=== PATIENT | female | born 2000 | race Caucasian/White ===

== ENCOUNTER 2020-11-27 14:33 | Emergency (ER) | payer OTHER, SELFPAY ==
--- NOTE | ~2020-11-27 | US_ITS ---
EXAMINATION: US OBSTETRICAL ULTRASOUND CLINICAL INFORMATION: Abdominal pain with question of ectopic COMPARISON: None. TECHNIQUE: Both transabdominal and endovaginal scanning was performed. FINDINGS: An anteverted uterus is present which appeared normal. Uterine size was not measured by the technologist. The endometrium appears normal at 1.2 cm. No endometrial fluid collection or gestational sac is seen. The right ovary measures 4.2 x 3.1 x 2.5 cm and includes a probable corpus luteum cyst measuring 2.4 x 1.4 x 2.1 cm. Left ovary measures 2.1 x 2.1 x 2.0 cm. Some free fluid is present in the cul-de-sac. US/US OB transvaginal IMPRESSION: An intrauterine gestation is not seen. Small amount of free intrapelvic fluid is noted. An ectopic is not visualized. Please correlate with HSG and follow-up ultrasounds as needed.
--- NOTE | ~2020-11-27 | US_ITS ---
EXAMINATION: US OBSTETRICAL ULTRASOUND CLINICAL INFORMATION: Abdominal pain with question of ectopic COMPARISON: None. TECHNIQUE: Both transabdominal and endovaginal scanning was performed. FINDINGS: An anteverted uterus is present which appeared normal. Uterine size was not measured by the technologist. The endometrium appears normal at 1.2 cm. No endometrial fluid collection or gestational sac is seen. The right ovary measures 4.2 x 3.1 x 2.5 cm and includes a probable corpus luteum cyst measuring 2.4 x 1.4 x 2.1 cm. Left ovary measures 2.1 x 2.1 x 2.0 cm. Some free fluid is present in the cul-de-sac. US/US OB <= 14 weeks fetus IMPRESSION: An intrauterine gestation is not seen. Small amount of free intrapelvic fluid is noted. An ectopic is not visualized. Please correlate with HSG and follow-up ultrasounds as needed.
--- NOTE | ~2020-11-27 | US_ITS ---
EXAMINATION: RIGHT LOWER QUADRANT ULTRASOUND CLINICAL INFORMATION: Right lower quadrant pain with question of appendicitis COMPARISON: None TECHNIQUE: A linear transducer was utilized to examine the right lower quadrant in area of the patient's pain. FINDINGS: A normal appendix was not visualized. No inflammatory changes or adenopathy or free fluid is seen in the right lower quadrant. US/US appendix IMPRESSION: The exam is indeterminate for appendicitis as a normal appendix was not visualized.
[2020-11-27 14:58] VITALS: BP 123/57; PULSE 93; RESP 16; TEMP 36.6; O2SAT 99; BMI 23.9
[2020-11-27 17:59] VITALS: BP 120/70; PULSE 83; RESP 12; O2SAT 100
[2020-11-27 17:59] LABS: UPreg QC Valid YES; Urine Pregnancy POSITIVE (NEGATIVE)
[2020-11-27 18:00] LABS: Glucose Urine UA NEG (NEG); Leukocyte Esterase Urine NEG (NEG); Nitrite Urine NEG (NEG); PH 7.5 (5.0-8.0); Specific Gravity - Urine 1.015 (1.005-1.025); Urine Blood NEG (NEG); Urine Ketones NEG (NEG); Urine Protein NEG (NEG-TRACE)
[2020-11-27 18:08] LABS: Appearance Urine CLEAR; Color Urine YELLOW
--- NOTE | 2020-11-27 18:10 | ED_ITS ---
HPI - General Adult General Chief complaint: OB Stated complaint: abd pain Time Seen by Provider: 11/27/20 19:54 Source: patient Mode of arrival: ambulatory Limitations: no limitations History of Present Illness HPI narrative: Patient brought to the ED for bilateral lower abdominal pain/cramping. Patient states she found out she was yesterday after taking 6 test at home. Patient brought to the ED to be evaluated. Patient denies any vaginal bleeding or vaginal discharge. Patient denies any flank pain, fever, or chills. Related Data Allergies Allergy/AdvReac Type Severity Reaction Status Date / Time No Known Allergies Allergy Verified 11/27/20 14:57 Review of Systems Review of Systems: Yes all other systems are reviewed and are negative Constitutional: Constitutional: Reports as per HPI and Reports no additional constitutional complaints Eyes: Eyes: Reports as per HPI and Reports no additional eye complaints ENT: Reports system reviewed and no additional complaints, except as documented and Reports as per HPI Cardiovascular: Cardiovascular: Reports as per HPI and Reports no additional cardiovascular complaints Respiratory: Respiratory: Reports as per HPI and Reports no additional respiratory complaints Gastrointestinal: Gastrointestinal: Reports as per HPI, Reports no additional gastrointestinal complaints and Reports abdominal pain (Bilateral suprapubic pain) Genitourinary: Genitourinary: Reports no additional female genitourinary complaints and Reports as per HPI Musculoskeletal: Musculoskeletal: Reports no additional musculoskeletal complaints and Reports as per HPI Neurologic: Reports system reviewed and no additional complaints, except as documented and Reports as per HPI Psychiatric: Psychiatric: Reports no additional psychiatric complaints and Reports as per HPI [facility] Social History Social History Alcohol intake: current Alcohol intake frequency: does not drink Smoking Status: Never smoker Use of substances other than those prescribed or required for medical reasons: No Advance Directives: No Advance Directives Information Provided: Yes Physical Exam Vital Signs: Vital Signs: Last Vital Signs Temp 97.9 F 11/27/20 14:58 Pulse 83 11/27/20 17:59 Resp 12 11/27/20 17:59 BP 120/70 11/27/20 17:59 Pulse Ox 100 11/27/20 17:59 Body Mass Index 23.9 Const: General: cooperative, healthy appearing, comfortable, no acute distress, well developed, alert, awake and Physically active Orientation/consciousness: patient oriented x3 HENMT: Head: Yes normal to inspection, Yes No palpable skull fracture present, Yes normocephalic, Yes atraumatic and No abrasion Eyes: General: appearance normal, both eyes and all related structures Neck: Neck: Yes normal visual inspection, Yes full ROM, Yes no lymphadenopathy, Yes no meningeal signs, Yes trachea midline, Yes supple and No tender Chest: Chest palpation & inspection: normal inspection of the chest and normal palpation of entire chest wall Resp: Effort & Inspection: normal respiratory effort and able to speak in com plete sentences Auscultation: clear to auscultation bilaterally Cardio: Jugular venous distension: no JVD and no JVD Heart sounds: S1 normal heart sound present and S2 normal heart sound present GI: Inspection: Yes normal to inspection Palpation (GI): Soft to palpation, not firm, Tenderness to palpation present (GI) suprapubicly (Bilateral suprapubic pain); not periumbilically, Cannon's sign negative, obturator sign negative, psoas sign negative, with no rebound tenderness, Rovsing's sign negative and no other, no guarding and not rigid : General: Yes Bimanual renal exam normal bilaterally, No CVA tenderness and Yes no CVA tenderness Speculum Exam - Vagina: normal appearance of the vagina and No vaginal bleeding Speculum Exam - Cervix: normal appearance of the cervix and Cervical os closed Bimanual Exam- Adnexa, other: normal adnexae OB/external & speculum: No vaginal bleeding Back/Spine/Pelvis: Back: no CVA tenderness, No CVA tenderness and No back tenderness Skin: General skin exam: no rashes or lesions noted and elasticity normal Neuro: General: patient oriented x3, no meningeal signs and CN's II-XI intact bilaterally Cranial nerves: Yes CN's II-XII intact bilaterally Extrem: General: Yes normal to inspection and Yes full ROM Psych: Appearance: grossly normal, well kempt and not disheveled Course Course Course Narrative: Will send urine. If patient's urine is positive and negative for UTI. Patient will have labs and be sent for ultrasound to rule out ectopic . Reevaluation(s) Reevaluation #1: Patient's urine positive. Will do blood work and sent her for imaging to rule out topic . Reevaluation #2: Unlikely patient having appendicitis. Patient does not have elevated white blood cell count. Negative McBurney. And ultrasound negative for any signs fluid or lymphadenopathy although appendix not visualized. Patient states she feels better. HCG Asmita at 667 ultrasound negative for IUP with small free fluid. Spoke with Dr. Rodriguez of [facility] who states patient could be discharged and follow-up in the clinic within 48 hours for repeat hCG and ultrasound. Patient no longer having any abdominal pain after receiving Tyleno l. Medical Decision Making MDM Narrative Medical decision making narrative: . Threatened . Lab Data Result diagrams: 11/27/20 18:35 11/27/20 18:35 Labs: Lab Results 11/27/20 11/27/20 11/27/20 Range/Units 17:31 17:31 18:35 WBC 8.0 (4.8-10.8) X10*3/uL RBC 4.29 (4.20-5.50) X10*6/uL Hgb 12.4 (12.0-16.0) g/dl Hct 38.1 (37-47) % MCV 88.8 (80-98) fL MCH 28.9 (27.0-33.0) pg MCHC 32.5 (31.0-35.0) g/dl RDW 11.8 (11.0-16.0) % Plt Count 258 (160-400) X10*3/uL MPV 9.3 L (9.4-12.3) fL Immature Gran % (Auto) 0.5 H (0.0-0.4) % Neut % (Auto) 61.0 (45-73) % Lymph % (Auto) 27.2 (20-40) % [place] % (Auto) 6.6 (2-11) % Eos % (Auto) 4.2 H (0-4) % Baso % (Auto) 0.5 (0-2) % Lymph # (Auto) 2.2 (1.2-4.9) X10*3/uL [place] # (Auto) 0.5 (0.1-1.2) X10*3/uL Eos # (Auto) 0.3 (0.0-0.4) X10*3/uL Baso # (Auto) 0.0 (0.0-0.2) X10*3/uL Abs Immat Gran (auto) 0.04 H (0.00-0.03) X10*3/uL Absolute Neuts (auto) 4.9 (2.0-8.3) X10*3/uL Absolute Nucleated RBC 0.000 (0.0-0.012) X10*3/uL Nucleated RBC % (auto) 0.0 (0.0-0.2) /100WBC PT (10.8-13.0) SEC INR (0.9-1.1) APTT (24.1-38.0) SEC Sodium (135-145) mmol/L Potassium (3.3-5.1) mmol/L Chloride (96-108) mmol/L Carbon Dioxide (22-29) mmol/L Anion Gap (12-20) BUN (9-16) mg/dL Creatinine (0.5-1.4) mg/dL Estim Creat Clear Calc Estimated GFR Random Glucose (60-115) mg/dL Calcium (8.4-10.2) mg/dL Total Bilirubin (0.0-1.0) mg/dL Direct Bilirubin (0.0-0.5) mg/dL AST (5-31) U/L ALT (0-31) U/L Alkaline Phosphatase (39-117) U/L Total Protein (6.5-8.0) g/dL Albumin (3.5-5.0) g/dL Beta HCG, Quant mIU/mL Urine Color YELLOW Urine Appearance CLEAR Urine pH 7.5 (5.0-8.0) Ur Specific [place] 1.015 (1.005-1.025) Urine Protein NEG (NEG-TRACE) MG/DL Urine Glucose (UA) NEG (NEG) MG/DL Urine Ketones NEG (NEG) MG/DL Urine Blood NEG (NEG) Urine Nitrite NEG (NEG) Ur Leukocyte Esterase NEG (NEG) Urine RBC 0 (0) /HPF Urine WBC 0 (0-4) /HPF Ur Squamous Epith Cells TRACE /LPF Urine Bacteria NONE /LPF Urine Test POSITIVE H (NEGATIVE) Blood Type 11/27/20 11/27/20 11/27/20 Range/Units 18:35 18:35 18:35 WBC (4.8-10.8) X10*3/uL RBC (4.20-5.50) X10*6/uL Hgb (12.0-16.0) g/dl Hct (37-47) % MCV (80-98) fL MCH (27.0-33.0) pg MCHC (31.0-35.0) g/dl RDW (11.0-16.0) % Plt Count (160-400) X10*3/uL MPV (9.4-12.3) fL Immature Gran % (Auto) (0.0-0.4) % Neut % (Auto) (45-73) % Lymph % (Auto) (20-40) % [place] % (Auto) (2-11) % Eos % (Auto) (0-4) % Baso % (Auto) (0-2) % Lymph # (Auto) (1.2-4.9) X10*3/uL [place] # (Auto) (0.1-1.2) X10*3/uL Eos # (Auto) (0.0-0.4) X10*3/uL Baso # (Auto) (0.0-0.2) X10*3/uL Abs Immat Gran (auto) (0.00-0.03) X10*3/uL Absolute Neuts (auto) (2.0-8.3) X10*3/uL Absolute Nucleated RBC (0.0-0.012) X10*3/uL Nucleated RBC % (auto) (0.0-0.2) /100WBC PT 13.3 H (10.8-13.0) SEC INR 1.1 (0.9-1.1) APTT 31.4 (24.1-38.0) SEC Sodium 137 (135-145) mmol/L Potassium 3.9 (3.3-5.1) mmol/L Chloride 105 (96-108) mmol/L Carbon Dioxide 25 (22-29) mmol/L Anion Gap 11 L (12-20) BUN 10 (9-16) mg/dL Creatinine 0.67 (0.5-1.4) mg/dL Estim Creat Clear Calc 111.7 Estimated GFR > 60 Random Glucose 93 (60-115) mg/dL Calcium 8.9 (8.4-10.2) mg/dL Total Bilirubin 0.4 (0.0-1.0) mg/dL Direct Bilirubin 0.2 (0.0-0.5) mg/dL AST 18 (5-31) U/L ALT 11 (0-31) U/L Alkaline Phosphatase 45 (39-117) U/L Total Protein 7.1 (6.5-8.0) g/dL Albumin 4.4 (3.5-5.0) g/dL Beta HCG, Quant 669 mIU/mL Urine Color Urine Appearance Urine pH (5.0-8.0) Ur Specific [place] (1.005-1.025) Urine Protein (NEG-TRACE) MG/DL Urine Glucose (UA) (NEG) MG/DL Urine Ketones (NEG) MG/DL Urine Blood (NEG) Urine Nitrite (NEG) Ur Leukocyte Esterase (NEG) Urine RBC (0) /HPF Urine WBC (0-4) /HPF Ur Squamous Epith Cells /LPF Urine Bacteria /LPF Urine Test (NEGATIVE) Blood Type A Positive Discharge Plan Discharge Clinical Impression: , spontaneous threatened Patient Disposition: Home, Self-Care Instructions: Threatened Miscarriage (ED), (ED), Abdominal Pain in (ED) Additional Instructions: Return to the ED immediately for worsening abdominal pain, vaginal bleeding, dizziness, nausea, vomitting, weakness, fever, chills, chest pain, shortness of breath, dysuria, hematuria, flank pain, or any other concerning symptoms. Recommend repeat hCG and ultrasound in 48 hours. Referrals: Isidoro Rodriguez MD [Physician] - 2 days (Lower abdominal cramping and . Possible threatened . Recommend repeat ultrasound and beta-hCG in 48 hours.) Interventions: ED Discharge Assessment Last Done: 11/27/20 21:22 Discharge Date/Time: 11/27/20 21:23 Print Language: [place]
[2020-11-27 18:37] LABS: RBC Urine 0 /HPF (0); Squamous Epithelial Cell Urine TRACE /LPF; WBC Urine 0 /HPF (0-4)
[2020-11-27 18:43] LABS: MANUAL DIFF FLAG NO
[2020-11-27 18:48] LABS: Basophils Percent Auto 0.5 % (0-2); Eosinophils Absolute Auto 0.3 X10*3/uL (0.0-0.4); Eosinophils Percent Auto 4.2 % (0-4); Hematocrit 38.1 % (37-47); Hemoglobin 12.4 g/dl (12.0-16.0); INTERNATIONAL NORM RATIO 1.1 (0.9-1.1); Imm Gran Abs Auto 0.04 X10*3/uL (0.00-0.03); Imm Gran Pct Auto 0.5 % (0.0-0.4); Lymphocytes Absolute Auto 2.2 X10*3/uL (1.2-4.9); Lymphocytes Percent Auto 27.2 % (20-40); Mean Corpuscular HGB Conc 32.5 g/dl (31.0-35.0); Mean Corpuscular Hemoglobin 28.9 pg (27.0-33.0); Mean Corpuscular Volume 88.8 fL (80-98); Mean Platelet Volume 9.3 fL (9.4-12.3); Monocytes Absolute Auto 0.5 X10*3/uL (0.1-1.2); Monocytes Percent Auto 6.6 % (2-11); Neutrophils Absolute Auto 4.9 X10*3/uL (2.0-8.3); Platelet Count 258 X10*3/uL (160-400); Prothrombin Time 13.3 SEC (10.8-13.0); Red Blood Count 4.29 X10*6/uL (4.20-5.50); Red Cell Distribution Width 11.8 % (11.0-16.0)
[2020-11-27 18:51] LABS: Partial Thromboplastin Time 31.4 SEC (24.1-38.0)
[2020-11-27] MEDS: Acetaminophen 325 MG TABLET 650 MG PO (18:51)
[2020-11-27 19:05] LABS: Alanine Aminotransferase 11 U/L (0-31); Albumin Level 4.4 g/dL (3.5-5.0); Alkaline Phosphatase 45 U/L (39-117); Anion Gap 11 (12-20); Aspartate Amino Transferase 18 U/L (5-31); Bilirubin Direct 0.2 mg/dL (0.0-0.5); Bilirubin Total 0.4 mg/dL (0.0-1.0); Blood Urea Nitrogen 10 mg/dL (9-16); Calcium 8.9 mg/dL (8.4-10.2); Carbon Dioxide 25 mmol/L (22-29); Chloride 105 mmol/L (96-108); Creatinine Clr Calc Pharmacy 111.7; Estimated Glomerular Filt Rate > 60; Glucose Random 93 mg/dL (60-115); Potassium 3.9 mmol/L (3.3-5.1); Sodium 137 mmol/L (135-145); Total Protein 7.1 g/dL (6.5-8.0)
[2020-11-27 19:10] LABS: HCG Quantitative 669 mIU/mL
--- NOTE | 2020-11-27 22:50 | PM.GYNCN ---
ENERGY EFFICIENCY SPECIALIST - CN: HPI Data of Consult Consult date: 11/27/20 Primary Care Provider: None Physician Consult Narrative Narrative: I was consulted regarding Gonzalez Busch who is is a 19 year old female who presented emergency room with lower abdominal cramping after positive urine test yesterday no vaginal bleeding. Workup included CBC chemistry which were normal hCG 669, pelvic ultrasound and appendix ultrasound was negative no IUP and no adnexal masses. Rh positive cc:: CC: EXHIBITS COORDINATOR - Review of Systems Review of Systems ROS Unobtainable: All systems reviewed & are unremarkable except as noted in HPI and below Cardiovascular: Denies Palpatations, Loss of consciousness and Chest pain Respiratory: Denies Cough, Wheezing and Shortness of breath Musculoskeletal: Denies Low back pain Gastrointestinal: Denies Heartburn, Constipation, Diarrhea, Nausea and Vomiting Genitourinary: Denies Pain with urination, Burning with urination and Urinary frequency Neurological: Denies Migranes Psychological: Denies Depression OB [facility] Social History Social History Alcohol intake: current Alcohol intake frequency: does not drink Smoking Status: Never smoker Use of substances other than those prescribed or required for medical reasons: No Advance Directives: No Advance Directives Information Provided: Yes Meds Allergies Allergy/AdvReac Type Severity Reaction Status Date / Time No Known Allergies Allergy Verified 11/27/20 14:57 ENERGY EFFICIENCY SPECIALIST Physical Exam Vitals Vital signs: Temp Pulse Resp BP Pulse Ox 97.9 F 83 12 120/70 100 11/27/20 14:58 11/27/20 17:59 11/27/20 17:59 11/27/20 17:59 11/27/20 17:59 Body Mass Index 23.9 Abdomen Auscultation/Inspection/Palpation: Normal bowel sounds, Soft, Non-distended and No tenderness Additional Comments: Per [place] abdominal and pelvic exam within normal no cervical motion tenderness adnexal tenderness or adnexal tenderness ENERGY EFFICIENCY SPECIALIST - Results Labs CBC & Chem 7: 11/27/20 18:35 11/27/20 18:35 Labs: Short CBC 11/27/20 Range/Units 18:35 WBC 8.0 (4.8-10.8) X10*3/uL Hgb 12.4 (12.0-16.0) g/dl Hct 38.1 (37-47) % Plt Count 258 (160-400) X10*3/uL BMP 11/27/20 18:35 Sodium 137 Potassium 3.9 Chloride 105 Carbon Dioxide 25 BUN 10 Creatinine 0.67 Calcium 8.9 Liver Function 11/27/20 Range/Units 18:35 Total Bilirubin 0.4 (0.0-1.0) mg/dL Direct Bilirubin 0.2 (0.0-0.5) mg/dL AST 18 (5-31) U/L ALT 11 (0-31) U/L Alkaline Phosphatase 45 (39-117) U/L Albumin 4.4 (3.5-5.0) g/dL Urine 11/27/20 11/27/20 Range/Units 17:31 17:31 Urine Color YELLOW Urine Appearance CLEAR Urine pH 7.5 (5.0-8.0) Ur Specific [place] 1.015 (1.005-1.025) Urine Protein NEG (NEG-TRACE) MG/DL Urine Glucose (UA) NEG (NEG) MG/DL Urine Test POSITIVE H (NEGATIVE) Assessment and Plan (1) Early stage of : Status: Acute Recommended repeat hCG in 48 hours and re-evaluation in the office. Instructions to be given to patient to call if abdominal pain gets worse vaginal bleeding nausea or vomiting, fever above 1004
== END 2020-11-27 21:23 | disposition home or self-care (01) ==
PROVIDERS: Physician Assistant; Emergency Provider Internal Medicine
DX: O20.0 Threatened abortion (principal); R10.30 Lower abdominal pain, unspecified; Z3A.01 Less than 8 weeks gestation of pregnancy
CPT/HCPCS: 36415; 76705; 76801; 76817; 80053; 80076; 81001; 81025; 82248; 84702; 85025; 85610; 85730; 86900; 86901; 99283; 99284

== ENCOUNTER 2020-12-17 23:37 | Emergency (ER) | payer MEDICAID, SELFPAY ==
[2020-12-18 00:04] LABS: COVID-19 Test Positive (Negative)
[2020-12-18 00:16] VITALS: BMI 23.0
--- NOTE | 2020-12-18 00:31 | ED_ITS ---
HPI - Nausea/Vomiting/Diarrhea General Chief complaint: Nausea/Vomiting/Diarrhea Stated complaint: Covid symtoms Time Seen by Provider: 12/18/20 00:30 Source: patient Mode of arrival: ambulatory Limitations: no limitations History of Present Illness HPI Narrative: Patient is a 20-year-old female with a past medical history of asthma who is , unsure of how far along or due date but did say she has had tested positive for on November 24, she presents to the ED because her mother tested positive for COVID and she like to be tested because she has nausea vomiting x2 days. She denies fevers or diarrhea. She states she has had to use her inhaler today but it worked well when she did use it. She denies chest pain, shortness of breath. She states she did get some antinausea medication from her OBGYN and she took it today, it did not work. She said she is eating normal foods and did vomit a little bit of her breakfast, most of her lunch and a little bit of her dinner. She states she drinks water with lemon only. Related Data Allergies Allergy/AdvReac Type Severity Reaction Status Date / Time No Known Allergies Allergy Verified 11/27/20 14:57 Review of Systems Review of Systems: Yes all other systems are reviewed and are negative [facility] Social History Social History Alcohol intake: current Alcohol intake frequency: does not drink Smoking Status: Never smoker Advance Directives: No Physical Exam Vital Signs: Vital Signs: Last Vital Signs Pulse 81 12/18/20 01:05 Resp 16 12/18/20 01:05 BP 100/57 L 12/18/20 01:05 Pulse Ox 98 12/18/20 01:05 Body Mass Index 23.0 Const: General: cooperative, healthy appearing, comfortable and no acute distress Nutritional Appearance: average body habitus Orientation/consciousness: patient oriented x3 Limitations: no limitations HENMT: Head: Yes normal to inspection, Yes No palpable skull fracture present and Yes atraumatic Ears: hearing grossly normal bilaterally Face and sinus: Yes normal facial exam Mouth: Normal oral and palatal mucosa present and moist mucous membranes Eyes: General: appearance normal, both eyes and all related structures Neck: Neck: Yes normal visual inspection, Yes full ROM and Yes supple Resp: Effort & Inspection: normal respiratory effort and able to speak in complete sentences Auscultation: clear to auscultation bilaterally Cardio: Rate: regular rate Rhythm: regular rhythm Heart sounds: normal S1 and S2 GI: Inspection: Yes normal to inspection Palpation (GI): Soft to palpation and nontender Neuro: General: patient oriented x3 Course Course Course Narrative: Patient is a 20-year-old female with a past medical history of asthma who is also , unsure of how far, due date, she has a 1st appointment tomorrow with her OBGYN. She has had nausea and vomiting x2 days and her mother tested positive for COVID so she wanted to be tested today. Upon exam, patient was very well-appearing, well-hydrated, lungs are CTA. Patient did test positive for COVID. Reviewed making sure she stays hydrated with not only water but Pedialyte or similar electrolyte drink. Advised patient to use speak with her OBGYN to let them know she did test positive but she should quarantine and stay out of work for at least 10 days. Patient understands and answered all of patient's questions at this time. VSS MDM - Nausea/Vomiting/Diarrhea Lab Data Attestation: I reviewed the patient's lab results. Labs: Lab Results 12/17/20 Range/Units 23:43 COVID-19 ([facility]) Positive A (Negative) COVID-19 Clin Com See Note Discharge Plan Discharge Clinical Impression: COVID-19, Early stage of Patient Disposition: Home, Self-Care Instructions: COVID-19 (Coronavirus Disease 2019) (ED) Additional Instructions: As discussed, please be sure to let your OBGYN know you have tested positive for COVID today. I will provide you with a work note to stay out of work for 10 days. Please be sure to stay well hydrated with electrolyte drink similar to Pedialyte. If you are unable to tolerate food, having a difficult time managing your nausea, please call your OBGYN or seek emergent medical care. Stand Alone Forms: Work/School Release Interventions: ED Discharge Assessment Last Done: 12/18/20 01:06 Discharge Date/Time: 12/18/20 01:07
[2020-12-18 01:05] VITALS: BP 100/57; PULSE 81; RESP 16; O2SAT 98
== END 2020-12-18 01:07 | disposition home or self-care (01) ==
PROVIDERS: Emergency Provider Emergency Medicine Emergency Medical Services
DX: O98.511 Other viral diseases complicating pregnancy, first trimester (principal); U07.1 COVID-19; Z3A.00 Weeks of gestation of pregnancy not specified
CPT/HCPCS: 36415; 87635; 99283; 99284

== ENCOUNTER 2021-03-29 20:05 | Emergency (ER) | payer MEDICAID, SELFPAY ==
[2021-03-29 20:41] VITALS: BP 121/67; PULSE 92; RESP 18; TEMP 36.8; O2SAT 98; BMI 24.9
[2021-03-29 21:05] LABS: IDNOW Serial# 9DD0AD1C; Strep A Nucleic Acid Negative (Negative)
--- NOTE | 2021-03-29 21:24 | ED_ITS ---
HPI - URI/Sore Throat General Chief Complaint: Upper Respiratory Symptoms Stated Complaint: strept? 22 weeks Time Seen by Provider: 03/29/21 21:24 Source: patient Mode of arrival: ambulatory Limitations: no limitations History of Present Illness HPI Narrative: sore throat stted boy friend has strep throat and she has throat pain MD elicited complaint: sore throat Onset (ago): hour(s) (1) Consistency: constant Severity: moderate Able to tolerate fluids by mouth: Yes Exacerbating factors: swallowing Context: sick contacts Related Data Allergies Allergy/AdvReac Type Severity Reaction Status Date / Time No Known Allergies Allergy Verified 03/29/21 20:40 Review of Systems Review of Systems: Yes all other systems are reviewed and are negative ENT: Reports as per HPI and Reports sore throat Cardiovascular: Cardiovascular: Reports no additional cardiovascular complaints Respiratory: Respiratory: Reports no additional respiratory complaints [facility] Past Medical History Attestation statement: The following information was validated with the patient. Medical History Asthma Social History Social History Alcohol intake: current Alcohol intake frequency: does not drink Advance Directives: No Advance Directives Information Provided: Yes Patient : Yes Physical Exam Vital Signs: Vital Signs: Last Vital Signs Temp 98.2 F 03/29/21 20:41 Pulse 92 03/29/21 20:41 Resp 18 03/29/21 20:41 BP 121/67 03/29/21 20:41 Pulse Ox 98 03/29/21 20:41 Body Mass Index 24.9 Const: General: healthy appearing Orientation/consciousness: oriented to person, oriented to place, oriented to time and patient oriented x3 HENMT: Head: Yes normal to inspection and Yes No palpable skull fracture present Ears: hearing grossly normal bilaterally General nose exam: Normal external nose present and Normal nares present Throat: Yes other (Redness of the pharynx was noted) Neck: Neck: Yes normal visual inspection, Yes full ROM and Yes no lymphadenopathy Thyroid: Thyroid normal Chest: Chest palpation & inspection: normal inspection of the chest Resp: Effort & Inspection: normal respiratory effort Cardio: Jugular venous distension: no JVD Rate: regular rate GI: Inspection: Yes normal to inspection : General: Yes no CVA tenderness Back/Spine/Pelvis: Back: no CVA tenderness Skin: General skin exam: no rashes or lesions noted Neuro: General: oriented to person, oriented to place, oriented to time, patient oriented x3 and gait normal MDM - URI/Sore Throat MDM Narrative Medical decision making narrative: Strep is negative ; coronavirus test is negative ;she is not toxic she looks well she can be discharged home a Lab Data Labs: Lab Results 03/29/21 03/29/21 Range/Units 20:48 20:50 Coronavirus (PCR) NEGATIVE (Negative) Influenza Type A (PCR) NEGATIVE (Negative) Influenza Type B (PCR) NEGATIVE (Negative) RSV RNA Qual (PCR) NEGATIVE (Negative) S. pyogenes GrpA MARY Negative (Negative) Discharge Plan Discharge Clinical Impression: Pharyngitis Patient Disposition: Home, Self-Care Instructions: Pharyngitis (ED) Discharge Date/Time: 03/29/21 21:45
[2021-03-29 21:34] LABS: Influenza A PCR NEGATIVE (Negative); Influenza B PCR NEGATIVE (Negative); Resp Syncy Virus RNA Qual PCR NEGATIVE (Negative); SARS COV2 PCR INHOUSE NEGATIVE (Negative)
== END 2021-03-29 21:45 | disposition home or self-care (01) ==
PROVIDERS: Emergency Provider Emergency Medicine
DX: O26.92 Pregnancy related conditions, unspecified, second trimester (principal); Z3A.22 22 weeks gestation of pregnancy; Z20.822 Contact with and (suspected) exposure to COVID-19
CPT/HCPCS: 0241U; 36415; 87651; 99283

== ENCOUNTER 2023-12-20 20:09 | Emergency (ER) | payer OTHER, SELFPAY ==
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
[2023-12-20 20:27] VITALS: BP 127/78; PULSE 80; RESP 18; TEMP 37.1; O2SAT 99; BMI 26.9
[2023-12-20 20:42] VITALS: BP 127/78; PULSE 80; RESP 18; TEMP 37.1; O2SAT 99
[2023-12-20] MEDS: Erythromycin Base 0.5% Oph Oin 1 GM TUBE 1 CM EYE-RIGHT (20:43)
== END 2023-12-20 20:43 | disposition home or self-care (01) ==
PROVIDERS: Emergency Provider Internal Medicine; PCP Nurse Practitioner Family
DX: S05.01XA Injury of conjunctiva and corneal abrasion without foreign body, right eye, initial encounter (principal); X58.XXXA Exposure to other specified factors, initial encounter; Y93.9 Activity, unspecified; Y92.9 Unspecified place or not applicable; Y99.9 Unspecified external cause status
CPT/HCPCS: 99282; 99283